=== PATIENT | male | born 1980 | race Caucasian/White ===

== ENCOUNTER 2021-09-19 21:13 | Emergency (ER) | payer SELFPAY ==
[2021-09-19 22:40] LABS: BASOPHIL 1.4 % (0-2); EOSINOPHIL 0.2 % (0-5); HCT 39.2 % (42.0-52.0); LYMPHOCYTE 19.6 % (15-48); MCH 33.4 pg (25.0-31.0); MCHC 35.7 g/dL (32.0-36.0); MCV 93.6 fL (78.0-100.0); MONOCYTE 8.6 % (0-12); MPV 10.3 fL (6.0-9.5); NEUTROPHIL 69.7 % (41-80); NRBC 0; PLT 128 K/uL (150-400); RBC 4.19 M/uL (4.70-6.00); RDW 17.1 % (11.5-14.0); WBC 6.6 K/uL (4.0-10.5)
[2021-09-19 22:58] LABS: ALBUMIN 2.7 g/dL (3.4-5.0); BILIRUBIN - TOTAL 4.5 mg/dL (0.2-1.0); BUN/CREAT RATIO (CALC) 5.9 RATIO; CREATININE 0.68 mg/dL (0.67-1.17); GLOBULIN (CALCULATION) 4.2 g/dL; POTASSIUM 3.7 mmol/L (3.5-5.1); TOTAL PROTEIN 6.9 g/dL (6.4-8.2)
[2021-09-19 23:34] LABS: MAGNESIUM 2.2 mg/dL (1.8-2.4)
[2021-09-20 00:02] LABS: LACTIC ACID 2.8 mmol/L (0.4-1.9)
== END 2021-09-20 06:20 | disposition other institution (70) ==
LOC: FER 21:13
PROVIDERS: Emergency Medicine Emergency Medical Services
DX: K85.20 Alcohol induced acute pancreatitis without necrosis or infection (principal); E80.6 Other disorders of bilirubin metabolism; F10.239 Alcohol dependence with withdrawal, unspecified; Z88.0 Allergy status to penicillin; Z20.822 Contact with and (suspected) exposure to COVID-19
CPT/HCPCS: 36415; 80053; 82150; 83605; 83690; 83735; 85025; 93005; 96372; C9113; G0480; J2060; J2405; J2560; J3411; J7030; J7120; Q9967; U0002

== ENCOUNTER 2021-09-23 14:13 | Emergency (ER) | payer OTHER ==
[2021-09-23 15:32] LABS: BILIRUBIN 3+ mg/dL (NEGATIVE); BLOOD NEGATIVE Ery/uL (NEGATIVE); CLARITY HAZY (CLEAR); COLOR BROWN (YELLOW); GLUCOSE (U) TRACE mg/dL (NORMAL); LEUKOCYTES TRACE Leu/uL (NEGATIVE); NITRITE POSITIVE (NEGATIVE); PROTEIN 2+ mg/dL (NEGATIVE); SPECIFIC GRAVITY 1.025 (1.001-1.030); UROBILINOGEN >=8.0 mg/dL (0.2-1.0)
[2021-09-23 16:00] LABS: BACTERIA 1+; MUCOUS MODERATE
[2021-09-23 16:40] LABS: BASOPHIL 1.1 % (0-2); EOSINOPHIL 1.8 % (0-5); HCT 31.6 % (42.0-52.0); HGB 10.9 g/dl (13.2-18.0); LYMPHOCYTE 24.3 % (15-48); MCH 34.3 pg (25.0-31.0); MCHC 34.5 g/dL (32.0-36.0); MONOCYTE 11.1 % (0-12); NEUTROPHIL 59.9 % (41-80); NRBC 0.4; PLT 179 K/uL (150-400); RBC 3.18 M/uL (4.70-6.00); RDW 18.5 % (11.5-14.0)
[2021-09-23 16:41] LABS: MCV 99.4 fL (78.0-100.0)
[2021-09-23 17:25] LABS: ALBUMIN 2.3 g/dL (3.4-5.0); BUN/CREAT RATIO (CALC) 4.1 RATIO; CREATININE 0.73 mg/dL (0.67-1.17); GLOBULIN (CALCULATION) 3.8 g/dL; POTASSIUM 3.4 mmol/L (3.5-5.1); TOTAL PROTEIN 6.1 g/dL (6.4-8.2)
[2021-09-23] MEDS ORDERED: CIPRO500 MG PO (18:18)
== END 2021-09-23 18:46 | disposition home or self-care (01) ==
LOC: FER 14:13
PROVIDERS: Internal Medicine
DX: N30.00 Acute cystitis without hematuria (principal); R74.8 Abnormal levels of other serum enzymes; Z88.0 Allergy status to penicillin; Z87.19 Personal history of other diseases of the digestive system
CPT/HCPCS: 36415; 80053; 81001; 82150; 83690; 85025; 99284; J7030